=== PATIENT | female | born 1945 | race Caucasian/White ===

== ENCOUNTER 2019-03-19 07:12 | Emergency (ER) | payer OTHER ==
[2019-03-19 07:25] VITALS: BP 109/61
--- NOTE | 2019-03-19 07:52 | UC ---
Complaint Female HPI - HPI Summary HPI Summary: 73-year-old female presents with dark appearing urine that began yesterday morning. She feels as though there is blood in it. Her urine began as a cola Color and then lightened through the day into a pinkish brown/yellow. She has had no dysuria, frequency or urgency. She does have a history of bladder prolapse and also had kidney stones in the past. She tells me that she did not have any pain when she passed kidney stones. She has no history of bladder or kidney mass and is not on blood thinners. She has perhaps some mild bilateral backache been no abdominal pain, nausea or vomiting. - History Of Current Complaint Chief Complaint: UCGU Stated Complaint: BLOOD IN URINE Time Seen by Provider: 03/19/19 07:31 Hx Obtained From: Patient Pain Intensity: 0 - Allergies/Home Medications Allergies/Adverse Reactions: Allergies Allergy/AdvReac Type Severity Reaction Status Date / Time No Known Allergies Allergy Verified 03/19/19 07:25 PMH/Surg Hx/FS Hx/Imm Hx Previously Healthy: Yes GI/ History: Kidney Stones, Other - bladder prolapse - Surgical History Surgical History: Yes Surgery Procedure, Year, and Place: hernia-mesh - Family History Known Family History: Positive: Other - Bladder and ovarian cancer in her sister - Social History Alcohol Use: Occasionally Substance Use Type: None Smoking Status (MU): Never Smoked Tobacco Review of Systems All Other Systems Reviewed And Are Negative: Yes Constitutional: Negative: Fever Skin: Positive: Negative Respiratory: Positive: Negative Cardiovascular: Positive: Negative Gastrointestinal: Negative: Abdominal Pain, Nausea Genitourinary: Positive: Hematuria. Negative: Dysuria, Frequency, Urgency, Ulceration/Lesion Motor: Positive: Negative Neurovascular: Positive: Negative Physical Exam Appearance: Well-Appearing, No Pain Distress, Well-Nourished Vital Signs: Initial Vital Signs Temp 96.8 F 03/19/19 07:19 Pulse 67 03/19/19 07:19 Resp 12 03/19/19 07:19 BP 109/61 03/19/19 07:19 Pulse Ox 100 03/19/19 07:19 Eye Exam: Normal ENT: Positive: Hearing grossly normal Neck: Positive: Supple Respiratory: Positive: Lungs clear Cardiovascular: Positive: RRR Abdomen Description: Positive: Nontender, Soft Bowel Sounds: Positive: Present Musculoskeletal: Positive: Other: - no CVA tenderness Neurological: Positive: Alert Psychological Exam: Normal Skin Exam: Normal Diagnostics - Laboratory Lab Results: Lab Results 03/19/19 Range/Units 07:39 POC Urine Color Brown POC Urine Clarity Cloudy POC Urine pH 5.5 (5-9) POC Ur Specif [place] 1.015 (1.010-1.030) POC Urine Protein 1+ A (Negative) POC Ur Glucose (UA) Negative (Negative) POC Urine Ketones Negative (Negative) POC Urine Blood 3+ A (Negative) POC Urine Nitrite Negative (Negative) POC Urine Bilirubin Negative (Negative) POC Urine Urobilinogen 0.2 (Negative) POC U Leukocyte Esteras 2+ A (Negative) Complaint Female Dx - Course Course Of Treatment: Urinalysis with blood and leukocyte esterase. Treated with antibiotics. Limited evaluation here in the urgent care. May need CT urogram if persistent. Complaining of no external sores or lesions. Denies vaginal bleeding. Sister had bladder cancer and so I recommended repeat urinalysis in one week and if there is blood to have either cystoscopy or CT urogram. CT is not available in today. - Differential Dx/Diagnosis Differential Diagnosis/HQI/PQRI: Ureteral Stone, Urinary Tract Infection, Other - Bladder/kidney tumor Provider Diagnosis: Hematuria, microscopic Discharge - Sign-Out/Discharge Documenting (check all that apply): Patient Departure All imaging exams completed and their final reports reviewed: No Studies - Discharge Plan Condition: Improved Disposition: HOME Prescriptions: Cephalexin CAP* [Keflex CAP*] 500 mg PO TID #21 cap Patient Education Materials: Hematuria (ED) Referrals: Vandana Lovell MD [Primary Care Provider] - Additional Instructions: You must have a repeat urinalysis in one week. If you have blood in her urine at that time I recommended cystoscopy by a urologist or a CT urogram first. The CT urogram is done both with and without IV contrast. Return with fever, back pain, vomiting, worse, new symptoms or other concerns. Call your doctor first thing Thursday morning to schedule prompt follow-up as above. - Billing Disposition and Condition Condition: IMPROVED Disposition: Home
== END 2019-03-19 08:00 | disposition home or self-care (01) ==
LOC: UCEAST 07:12
DX: R31.29 Other microscopic hematuria (principal)
CPT/HCPCS: 81003; 87086; 87088; 99212; G0463

== ENCOUNTER → 2019-04-18 05:43 | Day surgery (SDC) | payer OTHER ==
--- NOTE | 2019-04-12 20:53 | HP ---
CC: Dr. Vandana Lovell * HISTORY AND PHYSICAL: DATE OF PLANNED ADMISSION AND SURGERY: 04/18/19 HISTORY OF PRESENT ILLNESS: Ms. Leslie is a 73-year-old white female who is admitted with a bladder tumor for cystoscopy and transurethral resection. Ms. Leslie's symptoms started about one month prior to admission when she had an episode of total gross painless hematuria. There was no associated frequency or urgency, and no flank or abdominal pain. She was evaluated at the [facility], and then followed by Dr. Lovell. Her urine culture was positive for strep. She was treated with a course of Keflex with resolution of the hematuria. Ten days later, she had a follow-up urine culture which again was positive for Strep. and she was again treated with improvement in her symptoms. She, however , has continued to have some suprapubic discomfort, urgency and frequency, but no recurrence of the gross hematuria. She has not had any flank or abdominal pain. The patient was worked up for the hematuria and had a CT urogram. The study showed normal kidneys,collecting systems and ureters, without any abnormal filling defects. There was however a 3-cm filling defect noted in the right base of the bladder consistent with bladder tumor. There was no evidence of any extension of the bladder mass outside the bladder wall, and no evidence of any lymphadenopathy or metastatic disease. The rest of the CT was normal. Office cystoscopy confirmed the presence of a 3-cm papillary lesion arising from the right base of the bladder lateral to the Rt ureteral orifice. 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 No other bladder lesions were seen. Because of the above findings, the patient is admitted for transurethral resection of the bladder tumor. PAST MEDICAL HISTORY: Relevant for an episode of renal colic that occurred 10 years ago, and she passed the stone spontaneously. She is in excellent health, no cardiac or pulmonary diseases or symptoms. [employer] HISTORY: Relevant for 2 vaginal deliveries. She had surgery for ectopic . She is maintained on Vagifem weekly. She had a [employer] exam which showed pelvic relaxation, but no other abnormalities. MEDICATIONS: She is on supplements and on probiotics. ALLERGIES: She denies any allergies to medications. FAMILY HISTORY: Relevant for her sister who had ovarian carcinoma and carcinoma of the bladder. She from metastatic ovarian carcinoma. SOCIAL HISTORY: She is a nonsmoker, no alcohol intake, no recreational drug use. PHYSICAL EXAMINATION GENERAL: Pleasant, healthy, and fit looking white female. VITAL SIGNS: Blood pressure 110/70, pulse of 70. LUNGS: Clear. HEART: Regular and rhythmic. No murmurs. ABDOMEN: Soft. No masses, no tenderness, and no CVA tenderness. PELVIC exam done at the time of the cystoscopy showed no pelvic masses. IMPRESSION: 3-cm bladder tumor rising from the right base of the bladder with normal upper tracts by CT urogram. PLAN/RECOMMENDATIONS: Plan is for a cystoscopy and transurethral resection of the bladder tumor. I discussed the above plans in detail with the patient. The patient understands that she may need additional treatment depending upon the pathology. Some of the potential complications including risk of bladder perforation were discussed. All her questions answered. [id number]/[facility] #: [id number] [place]
[~2019-04-18 05:43] MED LIST: Buffered Lidocaine 1% SYRIN* 1 ML/SYRINGE INTRADERM ONE; Dexamethasone IV* 4 MG/ML 1 ML (4 MG) IV SLOW PU ONE; Dexamethasone IV* 4 MG/ML 1 ML (4 MG) ONE; DiMENhydriNATE IV* 50 MG/ML VIAL IV PUSH PRN; EPHEDrine (Pressors)* 50 MG/ML VIAL ONE; Famotidine IV* 10 MG/ML 2 ML (20 mg) IV ONE; Famotidine IV* 10 MG/ML 2 ML (20 mg) ONE; Ketorolac INJ* 30 MG/ML 1 ML VIAL ONE; Lactated Ringers 1000 ML Bag* 1,000 ML IV SCH; Naloxone* 0.4 MG/ML 1 ML VIAL IV PRN; Ondansetron INJ* 2 MG/ML VIAL ONE; Propofol* 10 MG/ML 20 ML BTL ONE; cefTRIAXone(*) 2 GM ADDV.VIAL IVPB ONE; fentaNYL* 50 MCG/ML 2 ML VIAL (100 MCG VIAL) IV PRN; fentaNYL* 50 MCG/ML 2 ML VIAL (100 MCG VIAL) ONE; mitoMYcin PWD* 40 MG in Sterile Water for Inj* 40 ML IRRIGATION ONE
--- NOTE | 2019-04-18 09:41 | OP ---
CC: Dr. Vandana Lovell * DATE OF OPERATION: 04/18/19 - [facility] DATE OF : 49 SURGEON: Sudeep Bullock MD. ANESTHESIOLOGIST: Dr. Ortiz Thibodeaux. ANESTHESIA: General. PRE-OP DIAGNOSIS: Bladder tumor, right base, 4 cm. POST-OP DIAGNOSIS: Bladder tumor, right base, 4 cm. OPERATIVE PROCEDURES: 1. Cystoscopy. 2. Transurethral resection of bladder tumor (4 cm, right base). INDICATION FOR PROCEDURE: Mrs. Leslie is a 73-year-old white female who is a nonsmoker and who 1 month ago noted an episode of total gross painless hematuria. Her urine culture was positive for strep. She was treated with good response to antibiotics. She was worked up for the gross hematuria and had a CT urogram, which showed normal upper tracts without any abnormal filling defects in the collecting systems or the ureters. There was a 3 to 4 cm filling defect in the right base of the bladder consistent with a bladder tumor. Office cystoscopy confirmed a medium- grade looking papillary tumor arising from the right base of the bladder. No other lesions were seen. Because of the above history and findings, the patient was admitted for resection of the above tumor. PATHOLOGY: at cystoscopy, again was noted a pedunculated papillary lesion arising from the right base of the bladder lateral to the right ureteral orifice. The tumor had the grpss appearance of a low- to medium-grade transitional cell carcinoma. There were no other suspicious bladder lesions seen. No areas to suggest carcinoma in situ. The ureteral orifices looked normal. There was a dilated submucosal vein going from the trigone into the base of the tumor. No other bladder abnormalities were noted. DESCRIPTION OF PROCEDURE: After successful general anesthesia, the patient was placed in the lithotomy position and was prepped and draped for a cystoscopy. Cystoscopy was performed and the bladder was carefully inspected and the above findings were noted. Using the rigid biopsy forceps, the base of the tumor was identified and was grasped and was excised including superficial bladder wall muscle. The base of the tumor was sent separately for pathology. Additional biopsies were obtained from the base of the tumor and labeled as such. The rest of the tumor was removed and was floating inside the bladder, was evacuated and sent for pathology and labeled as bladder tumor. Examination of the base of the tumor showed no evidence of perforation. Bladder muscle fibers were noted. Extensive fulguration of the base of the tumor as well as the surrounding area was then performed with the Bugbee electrode. At the completion of the procedure, there was very good hemostasis. No residual tumor seen. The right ureteral orifice was intact. No evidence of bladder perforation and no tumor floating in the bladder seen. A size 16-Kazakh Alcazar catheter was then passed inside the bladder. The patient tolerated the procedure well and left the operating room in good condition. The plan is to give the patient one dose of intravesical mitomycin C in the recovery room to decrease the risk of recurrence of the tumor. [id number]/[facility] #: [id number] MTDD
[2019-04-18 12:07] VITALS: BP 126/69
== END | disposition home or self-care (01) ==
LOC: OR 05:43
PROVIDERS: ATTEND Urology
DX: C67.2 Malignant neoplasm of lateral wall of bladder (principal); R31.0 Gross hematuria; Z87.891 Personal history of nicotine dependence; R73.03 Prediabetes; E04.1 Nontoxic single thyroid nodule; M19.90 Unspecified osteoarthritis, unspecified site; Z87.442 Personal history of urinary calculi
CPT/HCPCS: 88305; J0696; J1100; J1885; J2405; J2704; J3010; J9280